=== PATIENT | female | born 1990 | race American Indian/Alaskan Native ===

== ENCOUNTER 2017-03-05 12:03 | Outpatient (CLI) | payer MEDICAID ==
[2017-03-05] MEDS ORDERED: LACTATED RINGERS 500 ML IV ONE (12:28)
[2017-03-05 12:51] VITALS: BP 104/55
[2017-03-05 13:59] LABS: Bacteria,Urine 4+ /HPF (Negative); Bilirubin,Urine NEG (Negative); Blood,Urine NEG (Negative); Ketones,Urine NEG (Negative); Leukocyte Esterase,Urine NEG (Negative); Mucus,Urine FEW /HPF; Nitrite,Urine NEG (Negative); Protein,Urine <15 mg/dL mg/dL (Negative); Urobilinogen,Urine < 2.0 mg/dL (<2.0)
[2017-03-05] MEDS ORDERED: XYLOCAINE 1% MPF 5 mL INFILTRATI ONE (14:36)
[2017-03-05] MEDS ORDERED: ROCEPHIN/NS 1 GM/50 ML 1 GM/50 ML BAG IV ONE (15:00)
[2017-03-06] MEDS ORDERED: ROCEPHIN IM SCH (10:00)
== END 2017-03-05 15:15 | disposition home or self-care (01) ==
LOC: TRG 12:03
PROVIDERS: ATTEND Obstetrics & Gynecology
DX: O47.03 False labor before 37 completed weeks of gestation, third trimester (principal)
CPT/HCPCS: 59025; 81001; 96360; J0696; J7120

== ENCOUNTER 2017-05-11 20:18 | Inpatient (IN) | payer MEDICAID ==
[2017-05-12] MEDS ORDERED: MINERAL OIL PO PRN (01:41)
[2017-05-12] MEDS ORDERED: XYLOCAINE 2% INFILTRATI ONE (01:41)
[2017-05-12] MEDS ORDERED: BRETHINE IVP PRN (01:41)
[2017-05-12] MEDS ORDERED: NARCAN 0.4 MG/1 ML IV PRN (01:41)
[2017-05-12] MEDS ORDERED: SUBLIMAZE IV PRN (01:41)
[2017-05-12] MEDS ORDERED: ePHEDrine SULFATE IV PRN (01:41)
[2017-05-12] MEDS ORDERED: STADOL IV PRN (01:41)
[2017-05-12] MEDS ORDERED: ZOFRAN IV PRN ×2 (01:41→14:20)
[2017-05-12] MEDS ORDERED: BRETHINE SUB-Q PRN (01:41)
[2017-05-12] MEDS ORDERED: PITOCin/NS 30 UNIT/500ML 30,000 MILLIUNITS/500 ML BAG IV ONE (01:42)
[2017-05-12] MEDS ORDERED: LACTATED RINGERS 1,000 ML ONE (01:42)
[2017-05-12] MEDS ORDERED: AMBIEN PO PRN (01:43)
[2017-05-12] MEDS ORDERED: PITOCin/NS 20 UNIT/1000ML DRIP 20 UNITS/1,000 ML BAG IV SCH (02:00)
[2017-05-12 02:42] LABS: Hematocrit 34.4 % (30.3-42.9); Mean Corpuscular HGB Conc 32 % (30-34); Platelet Count 185 K/mm3 (140-440); Red Blood Count 4.94 M/mm3 (3.65-5.03); White Blood Count 5.4 K/mm3 (4.5-11.0)
[2017-05-12 02:44] LABS: Mean Corpuscular Hemoglobin 22 pg (28-32); Mean Corpuscular Volume 70 fl (79-97); Red Cell Distribution Width 23.3 % (13.2-15.2)
[2017-05-12] MEDS: LACTATED RINGERS 1,000 ML IV SCH ×2 (05:45→10:44)
[2017-05-12] MEDS: PITOCin/NS 30 UNIT/500ML 30 UNITS/500 ML BAG IV SCH ×6 (05:46→11:22)
--- NOTE | 2017-05-12 08:12 | History and Physical Report ---
History of Present Illness Date of examination: 05/12/17 Date of admission: 05/11/17 20:18 History of present illness: 26 yo First trimester U/s EDC 05/02/17 @ 41.3 weeks gestation presented last night for postdates induction of labor. Started on low dose Pitocin. Cervix 3cm on admit, remains unchanged on evaluation this am. First trimester entry into care at 6 weeks gestation. course complicated by anemia with iron TID. She is GBS negative. 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 Family/Genetic History: none - Obstetrical History Expected Date of Delivery: 05/02/17 Actual Gestation: 41 Week(s) 3 Day(s) : 2 Para: 1 (6.7) Hx # Term Pregnancies: 1 Number of Living Children: 1 Medications and Allergies Allergies Allergy/AdvReac Type Severity Reaction Status Date / Time No Known Allergies Allergy Unverified 03/05/17 12:16 Home Medications Medication Instructions Recorded Confirmed Last Taken Type Ferrous Sulfate 325 mg PO TID 05/12/17 05/12/17 1 Week Ago History ~05/05/17 Active Meds: Active Medications Butorphanol Tartrate (Stadol) 2 mg IV Q2H PRN PRN Reason: Pain , Severe (7-10) Ephedrine Sulfate (Ephedrine Sulfate) 10 mg IV Q2M PRN PRN Reason: Hypotension Fentanyl (Sublimaze) 100 mcg IV Q2H PRN PRN Reason: Labor Pain Lactated Ringer's (Lactated Ringers) 1,000 mls @ 125 mls/hr IV DIRECT TAYLOR Last Admin: 05/12/17 05:45 Dose: 125 mls/hr Oxytocin/Sodium Chloride (Pitocin/Ns 20 Unit/1000ml Drip) 20 units in 1,000 mls @ 125 mls/hr IV DIRECT TAYLOR Oxytocin/Sodium Chloride (Pitocin/Ns 30 Unit/500ml) 30 units in 500 mls @ 2 mls /hr IV TITR TAYLOR PRN Reason: Protocol Last Admin: 05/12/17 08:05 Dose: 6 mls/hr, 6 mls/hr Mineral Oil (Mineral Oil) 30 ml PO QHS PRN PRN Reason: Constipation Naloxone HCl (Narcan 0.4 Mg/1 Ml) 0.1 mg IV Q2MIN PRN PRN Reason: Res Rate </= 8 or 02 SAT < 92% Ondansetron HCl (Zofran) 4 mg IV Q8H PRN PRN Reason: Nausea And Vomiting Terbutaline Sulfate (Brethine) 0.25 mg SUB-Q ONCE PRN PRN Reason: Hyperstimulation/Hypertonicity Terbutaline Sulfate (Brethine) 0.25 mg IVP ONCE PRN PRN Reason: Hyperstimulation/Hypertonicity Zolpidem Tartrate (Ambien) 10 mg PO QHS PRN PRN Reason: Insomnia Review of Systems All systems: negative - Vital Signs Vital signs: Vital Signs Pulse BP Pulse Ox 74 123/84 98 05/12/17 00:05 05/12/17 00:05 05/12/17 00:05 Temp Pulse Resp BP Pulse Ox 97.8 F 79 18 124/72 99 05/12/17 07:40 05/12/17 07:46 05/12/17 04:40 05/12/17 07:46 05/12/17 07:46 - Physical Exam Breasts: Positive: deferred Lungs: Positive: Normal air movement Abdomen: Positive: normal appearance Genitourinary (Female): Positive: other (abundant yeast) Vagina: Positive: normal moisture - Obstetrical FHR: category 1 Uterine Contraction Monitor Mode: External Cervical Dilatation: 3 Cervical Effacement Percentage: 70 station: -1 Uterine Contraction Frequency (min): 1-3 Uterine Contraction Duration: 60-70 Uterine Contraction Pattern: Regular Uterine Tone Measurement Phase: Resting Uterine Contraction Intensity: Mild Results Result Diagrams: 05/12/17 02:28 Abnormal lab results 05/12/17 Range/Units 02:28 MCV 70 L (79-97) fl MCH 22 L (28-32) pg RDW 23.3 H (13.2-15.2) % All other labs normal. Assessment and Plan A: IUP at 41.3 weeks gestation Postdates Induction of Labor Candidasis Infection P: Active Mangt Pitocin Diflucan 150mg po single dose
[2017-05-12] MEDS ORDERED: DIFLUCAN PO ONE (10:00)
[2017-05-12] MEDS ORDERED: BENADRYL PO PRN (11:30)
[2017-05-12] MEDS ORDERED: NARCAN 2 MG/2 ML ONE (13:11)
--- NOTE | 2017-05-12 14:17 | Procedure Note ---
OB Delivery Note - Delivery Date of Delivery: 05/12/17 (7-14oz female @ 1332) Surgeon: GRACE VILLALOBOS Estimated blood loss: 100cc - Vaginal Delivery presentation: vertex Delivery position: OA Intrapartum events: none Delivery induction: oxytocin Delivery augmentation: rupture of membranes Delivery monitor: none Route of delivery: Delivery cord: 3 umbilical vessels Episiotomy: none Delivery laceration: other (perineal abrasion, not bleeding, not repaired) Anesthesia: none - Infant A at 1 minute: 8 at 5 minutes: 9 Gender: Male (Progressed rapidly to C/C/+1. Pushed to viable female over intact perineum. Placed skin to skin. Spont. placenta, bleeding scant. Pitocin infusing. Laceration as noted)
[2017-05-12] MEDS ORDERED: PHENERGAN PO PRN (14:20)
[2017-05-12] MEDS ORDERED: DULCOLAX PR PRN (14:20)
[2017-05-12] MEDS ORDERED: NORCO 5/325 PO PRN (14:20)
[2017-05-12] MEDS ORDERED: TUCKS PAD TP PRN (14:20)
[2017-05-12] MEDS ORDERED: MILK OF MAGNESIA PO PRN (14:20)
[2017-05-12] MEDS ORDERED: LANSINOH TP PRN (14:20)
[2017-05-12] MEDS ORDERED: TYLENOL PO PRN (14:20)
[2017-05-12] MEDS ORDERED: SODIUM CHLORIDE FLUSH SYRINGE 10 ML IV NR (15:00)
[2017-05-12] MEDS: MOTRIN PO SCH (17:11)
[2017-05-13 04:10] LABS: Hematocrit 29.7 % (30.3-42.9); Hemoglobin 9.4 gm/dl (10.1-14.3)
--- NOTE | 2017-05-13 09:09 | Progress Note ---
Assessment and Plan O; VSS AF PPH/H: 9.4/29.7 A: Stable PP Day 1 P: D/c based on peds recommendation Subjective - Subjective Date of service: 05/13/17 Interval history: 26 yo First trimester U/s EDC 05/02/17 @ 41.3 weeks gestation presented last night for postdates induction of labor. Started on low dose Pitocin. Cervix 3cm on admit, remains unchanged on evaluation this am. First trimester entry into care at 6 weeks gestation. course complicated by anemia with iron TID. She is GBS negative. Patient reports: appetite normal, voiding normally, pain well controlled, ambulating normally : doing well, other (irregular heart beat, EKG done, awaiting peds to evaluate), bottle feeding Objective - Vital Signs Latest vital signs: Vital Signs Temp Pulse Resp BP BP Pulse Ox 05/13/17 00:00 98.9 F 88 18 126/63 05/12/17 20:00 98.2 F 91 H 18 121/66 05/12/17 17:10 98.5 F 65 15 109/70 98 05/12/17 15:06 96 H 119/73 05/12/17 14:53 91 H 97 05/12/17 14:51 94 H 117/79 05/12/17 14:48 93 H 97 05/12/17 14:43 89 96 05/12/17 14:38 94 H 96 05/12/17 14:36 88 113/56 05/12/17 14:33 93 H 97 05/12/17 14:28 89 96 05/12/17 14:23 89 97 05/12/17 14:21 92 H 123/60 05/12/17 14:18 95 H 97 05/12/17 14:13 97 H 97 05/12/17 14:08 94 H 97 05/12/17 14:06 97 H 124/63 05/12/17 14:03 102 H 98 05/12/17 13:58 108 H 99 05/12/17 13:53 110 H 98 05/12/17 13:51 110 H 128/67 05/12/17 13:34 144 H 98 05/12/17 13:28 112 H 91 05/12/17 13:23 111 H 99 05/12/17 13:18 122 H 99 05/12/17 13:13 110 H 100 05/12/17 13:08 122 H 100 05/12/17 13:03 104 H 100 05/12/17 12:58 105 H 100 05/12/17 12:53 105 H 100 05/12/17 12:48 103 H 100 05/12/17 12:43 103 H 100 05/12/17 12:38 103 H 99 05/12/17 12:33 99 H 100 05/12/17 12:28 104 H 100 05/12/17 12:23 110 H 100 05/12/17 12:18 88 100 05/12/17 12:13 84 100 05/12/17 12:08 81 100 05/12/17 12:03 87 100 05/12/17 11:58 97 H 100 05/12/17 11:53 87 100 05/12/17 11:48 91 H 100 05/12/17 11:36 71 100 05/12/17 11:34 89 83 L 05/12/17 11:31 80 100 05/12/17 11:26 68 100 05/12/17 11:21 72 100 05/12/17 11:16 81 100 05/12/17 11:11 69 100 05/12/17 11:06 77 100 05/12/17 11:01 75 100 05/12/17 10:58 81 90 05/12/17 10:56 84 100 05/12/17 10:51 76 98 05/12/17 10:46 99 H 91 05/12/17 10:41 73 99 05/12/17 10:36 81 99 05/12/17 10:31 87 98 05/12/17 10:26 88 97 Intake and Output 05/12/17 05/13/17 05/13/17 22:59 06:59 14:59 Intake Total 240 Output Total 800 Balance -800 240 Intake: Oral 240 Output: Urine 800 Void 800 Other: Total, Intake Amount 240 Total, Output Amount 800 # Voids Void 1 1 - Exam Breasts: Present: deferred Lungs: Present: Normal air movement Abdomen: Present: normal appearance, soft. Absent: distention, tenderness Vulva: both: normal Uterus: Present: normal, firm, fundal height below umbilicus. Absent: bogginess , tenderness Extremities: Present: normal - Labs Labs: Abnormal lab results 05/13/17 Range/Units 03:30 Hgb 9.4 L (10.1-14.3) gm/dl Hct 29.7 L (30.3-42.9) %
[2017-05-13] MEDS: MOTRIN PO SCH ×3 (10:02→22:33)
[2017-05-13] MEDS: FEOSOL PO SCH ×2 (10:02→22:33)
[2017-05-13] MEDS ORDERED: M-M-R II VACCINE SUB-Q ONE (14:20)
[2017-05-13] MEDS ORDERED: BOOSTRIX IM ONE (14:20)
[2017-05-14] MEDS: MOTRIN PO SCH (08:15)
--- NOTE | 2017-05-14 08:51 | Progress Note ---
Assessment and Plan A: PPD#2 s/p at term, Asymptomatic anemia P: Routine care. Discharge today with follow up in 4 wks with Naomi Bowles Subjective - Subjective Date of service: 05/14/17 Principal diagnosis: S/P at term, Asymptomatic anemia Interval history: Pt without complaints. Patient reports: appetite normal, voiding normally, pain well controlled, ambulating normally Normal: doing well Objective - Vital Signs Latest vital signs: Vital Signs Temp Pulse Resp BP 05/14/17 00:00 98.0 F 76 18 128/73 05/13/17 22:33 18 05/13/17 16:20 98.5 F 85 18 123/87 05/13/17 12:30 98.4 F 84 18 116/94 Intake and Output 05/13/17 05/14/17 05/14/17 22:59 06:59 14:59 Intake Total 240 Balance 240 Intake: Oral 240 Other: Total, Intake Amount 120 # Voids Void 1 - Exam Breasts: Present: deferred Cardiovascular: Present: Regular rate Lungs: Present: Clear to auscultation Abdomen: Present: soft Uterus: Present: fundal height below umbilicus Extremities: Present: normal
--- NOTE | 2017-05-14 09:41 | Discharge Summary ---
Providers - Providers Date of Admission: 05/11/17 20:18 Date of discharge: 05/14/17 Attending physician: RAHEEM FOUNTAIN Primary care physician: RAHEEM FOUNTAIN Hospitalization Reason for admission: induction of labor Delivery: Procedure details: Please see delivery note. Episiotomy: none Laceration: other (perineal abrasion, hemostatic without repair ) Other procedures: none complications: none Discharge diagnosis: IUP at term delivered baby: male Hospital course: Pt was admitted for induction of labor and went on to have a spontaneous vaginal deliver which she tolerated well. Her postoperative course was uncomplicated and she met discharge criteria on PPD#2. Condition at discharge: Stable Disposition: DC- TO HOME OR SELFCARE - Discharge Diagnoses (1) Term of male Status: Acute (2) Anemia Status: Acute Qualifiers: Anemia type: iron deficiency Plan - Discharge Medications Prescriptions: Ferrous Sulfate 325 mg PO BID #60 tablet. HYDROcodone/ACETAMINOPHEN [[place] 5-325 Tablet] 1 each PO Q6H PRN #20 tablet PRN Reason: Pain Ibuprofen [Motrin] 600 mg PO Q6H PRN #30 tablet PRN Reason: Pain - Provider Discharge Summary Activity: routine, no sex for 6 weeks, no heavy lifting 4 weeks, no strenuous exercise Diet: routine Instructions: routine Additional instructions: [] Smoking cessation referral if applicable(refer to patient education folder for contact #) [] Refer to [facility] Booklet Call your doctor immediately for: * Fever > 100.5 * Heavy vaginal bleeding ( >1 pad per hour) * Severe persistent headache * Shortness of breath * Reddened, hot, painful area to leg or breast * Drainage or odor from incision. * Keep incision clean and dry at all times and follow doctor's instructions regarding bathing/showering Please schedule your son's circumcision before he is one month old. - Follow up plan Follow up: GRACE VILLALOBOS CNM [Advanced Practice Nurse] - 06/09/17 (postspartum exam. - please call office. )
[2017-05-14 16:27] VITALS: BP 124/81
== END 2017-05-14 16:20 | disposition home or self-care (01) | DRG 774 ==
LOC: APU 20:18 → LD 20:40 → OB 05-12 16:25
PROVIDERS: ADMIT Obstetrics & Gynecology; ATTEND Obstetrics & Gynecology
PROC: 10E0XZZ Delivery of Products of Conception, External Approach (ICD-10-PCS; principal; 2017-05-12)
PROC: 3E0234Z Introduction of Serum, Toxoid and Vaccine into Muscle, Percutaneous Approach (ICD-10-PCS; 2017-05-12)
PROC: 3E033VJ Introduction of Other Hormone into Peripheral Vein, Percutaneous Approach (ICD-10-PCS; 2017-05-12)
DX: O48.0 Post-term pregnancy (principal); O98.82 Other maternal infectious and parasitic diseases complicating childbirth; Z3A.41 41 weeks gestation of pregnancy; Z37.0 Single live birth; B37.9 Candidiasis, unspecified; O71.82 Other specified trauma to perineum and vulva; O90.81 Anemia of the puerperium; D64.9 Anemia, unspecified
CPT/HCPCS: 36415; 85014; 85018; 85027; 86592; 86850; 86900; 86901; 99211; G0463; J0595; J2310; J2590; J3010; J7120

== ENCOUNTER 2020-07-01 13:04 | Emergency (ER) | payer MEDICAID ==
[2020-07-01] MEDS ORDERED: ACETAMINOPHEN 325 MG TAB PO ONE (14:34)
[2020-07-01 15:12] LABS: Bacteria,Urine 1+ /HPF (Negative); Bilirubin,Urine NEG (Negative); Blood,Urine NEG (Negative); Color,Urine Yellow (Yellow); Mucus,Urine 3+ /HPF; Protein,Urine <15 mg/dL mg/dL (Negative); Urobilinogen,Urine < 2.0 mg/dL (<2.0)
--- NOTE | 2020-07-01 15:15 | Emergency Department Report ---
ED HPI - General Chief complaint: Abdominal Pain Stated complaint: STOMACH PAIN Time Seen by Provider: 07/01/20 14:26 Source: patient Mode of arrival: Ambulatory Limitations: No Limitations - History of Present Illness Initial comments: Patient is a 29-year-old female presents emergency room complaints of pelvic pain that began today. She states that she is approximately 16 weeks . She states that her ANIMAL ASSISTED THERAPIST is at [facility]. She states that she tried to call today with but was unable to get in touch with anyone. She denies any vaginal bleeding, dysuria, abnormal vaginal discharge, leakage of fluids, nausea, vomiting, diarrhea, fever, back pain. She states her last menstrual cycle was March 09. No past medical history. No allergies medications. She states that she is currently with twins. /P: 2/A: 0 - Related Data Home Medications Medication Instructions Recorded Confirmed Last Taken Ferrous Sulfate 325 mg PO TID 05/12/17 05/12/17 1 Week Ago ~05/05/17 Previous Rx's Medication Instructions Recorded Last Taken Type Ferrous Sulfate 325 mg PO BID #60 tablet. 05/14/17 Unknown Rx HYDROcodone/ACETAMINOPHEN [[place] 1 each PO Q6H PRN #20 tablet 05/14/17 Unknown Rx 5-325 Tablet] Ibuprofen [Motrin] 600 mg PO Q6H PRN #30 tablet 05/14/17 Unknown Rx Acetaminophen [Tylenol] 650 mg PO Q8HR PRN #20 capsule 07/01/20 Unknown Rx Allergies Allergy/AdvReac Type Severity Reaction Status Date / Time No Known Allergies Allergy Unverified 03/05/17 12:16 ED Review of Systems ROS: Stated complaint: STOMACH PAIN Other details as noted in HPI Comment: All other systems reviewed and negative ED Past Medical Hx - Past Medical History Previous Medical History?: No Hx Diabetes: No Hx Deep Vein Thrombosis: No Hx Renal Disease: No Hx Sickle Cell Disease: No Hx Seizures: No Hx Asthma: No Hx HIV: No - Surgical History Past Surgical History?: No - Social History Smoking Status: Never Smoker - Medications Home Medications: Home Medications Medication Instructions Recorded Confirmed Last Taken Type Ferrous Sulfate 325 mg PO TID 05/12/17 05/12/17 1 Week Ago History ~05/05/17 Ferrous Sulfate 325 mg PO BID #60 tablet. 05/14/17 Unknown Rx HYDROcodone/ACETAMINOPHEN [[place] 1 each PO Q6H PRN #20 tablet 05/14/17 Unknown Rx 5-325 Tablet] Ibuprofen [Motrin] 600 mg PO Q6H PRN #30 tablet 05/14/17 Unknown Rx Acetaminophen [Tylenol] 650 mg PO Q8HR PRN #20 capsule 07/01/20 Unknown Rx ED Physical Exam - General Limitations: No Limitations General appearance: alert, in no apparent distress - Head Head exam: Present: atraumatic, normocephalic - Eye Eye exam: Present: normal appearance - ENT ENT exam: Present: mucous membranes moist - Respiratory Respiratory exam: Present: normal lung sounds bilaterally. Absent: respiratory distress, wheezes, rales, rhonchi, stridor, chest wall tenderness, accessory muscle use, decreased breath sounds, prolonged expiratory - Cardiovascular Cardiovascular Exam: Present: regular rate, normal rhythm, normal heart sounds. Absent: systolic murmur, diastolic murmur, rubs, gallop - GI/Abdominal GI/Abdominal exam: Present: soft, normal bowel sounds. Absent: distended, tenderness, guarding, rebound, rigid - Neurological Exam Neurological exam: Present: alert, oriented X3 - Psychiatric Psychiatric exam: Present: normal affect, normal mood - Skin Skin exam: Present: warm, dry, intact ED Course Vital Signs 07/01/20 07/01/20 14:04 18:36 Temperature 98.9 F Pulse Rate 92 H 88 Respiratory 16 16 Rate Blood Pressure 120/69 113/56 [Right] O2 Sat by Pulse 98 100 Oximetry ED Medical Decision Making - Lab Data Result diagrams: 07/01/20 18:19 07/01/20 18:19 Lab Results 07/01/20 07/01/20 07/01/20 Range/Units 15:02 18:19 18:19 WBC 6.1 (4.5-11.0) K/mm3 RBC 4.50 (3.65-5.03) M/mm3 Hgb 10.5 (10.1-14.3) gm/dl Hct 32.3 (30.3-42.9) % MCV 72 L (79-97) fl MCH 23 L (28-32) pg MCHC 32 (30-34) % RDW 14.4 (13.2-15.2) % Plt Count 253 (140-440) K/mm3 Lymph % (Auto) 16.6 (13.4-35.0) % [place] % (Auto) 5.8 (0.0-7.3) % Eos % (Auto) 0.8 (0.0-4.3) % Baso % (Auto) 0.4 (0.0-1.8) % Lymph # (Auto) 1.0 L (1.2-5.4) K/mm3 [place] # (Auto) 0.4 (0.0-0.8) K/mm3 Eos # (Auto) 0.0 (0.0-0.4) K/mm3 Baso # (Auto) 0.0 (0.0-0.1) K/mm3 Seg Neutrophils % 76.4 H (40.0-70.0) % Seg Neutrophils # 4.6 (1.8-7.7) K/mm3 Sodium 136 L (137-145) mmol/L Potassium 3.7 (3.6-5.0) mmol/L Chloride 104.0 (98-107) mmol/L Carbon Dioxide 26 (22-30) mmol/L Anion Gap 10 mmol/L BUN 7 (7-17) mg/dL Creatinine 0.4 L (0.6-1.2) mg/dL Estimated GFR > 60 ml/min BUN/Creatinine Ratio 18 % Glucose 102 H (65-100) mg/dL Calcium 8.8 (8.4-10.2) mg/dL Total Bilirubin < 0.20 (0.1-1.2) mg/dL AST 15 (5-40) units/L ALT 13 (7-56) units/L Alkaline Phosphatase 68 (35-129) units/L Total Protein 6.3 (6.3-8.2) g/dL Albumin 3.4 L (3.9-5) g/dL Albumin/Globulin Ratio 1.2 % HCG, Quant (0-4) mIU/mL Urine Color Yellow (Yellow) Urine Turbidity Slightly-cloudy (Clear) Urine pH 6.0 (5.0-7.0) Ur Specific [place] 1.023 (1.003-1.030) Urine Protein <15 mg/dl (Negative) mg/dL Urine Glucose (UA) Neg (Negative) mg/dL Urine Ketones Neg (Negative) mg/dL Urine Blood Neg (Negative) Urine Nitrite Neg (Negative) Urine Bilirubin Neg (Negative) Urine Urobilinogen < 2.0 (<2.0) mg/dL Ur Leukocyte Esterase Tr (Negative) Urine WBC (Auto) 3.0 (0.0-6.0) /HPF Urine RBC (Auto) 2.0 (0.0-6.0) /HPF U Epithel Cells (Auto) 1.0 (0-13.0) /HPF Urine Bacteria (Auto) 1+ (Negative) /HPF Urine Mucus 3+ /HPF 07/01/20 Range/Units 18:19 WBC (4.5-11.0) K/mm3 RBC (3.65-5.03) M/mm3 Hgb (10.1-14.3) gm/dl Hct (30.3-42.9) % MCV (79-97) fl MCH (28-32) pg MCHC (30-34) % RDW (13.2-15.2) % Plt Count (140-440) K/mm3 Lymph % (Auto) (13.4-35.0) % [place] % (Auto) (0.0-7.3) % Eos % (Auto) (0.0-4.3) % Baso % (Auto) (0.0-1.8) % Lymph # (Auto) (1.2-5.4) K/mm3 [place] # (Auto) (0.0-0.8) K/mm3 Eos # (Auto) (0.0-0.4) K/mm3 Baso # (Auto) (0.0-0.1) K/mm3 Seg Neutrophils % (40.0-70.0) % Seg Neutrophils # (1.8-7.7) K/mm3 Sodium (137-145) mmol/L Potassium (3.6-5.0) mmol/L Chloride (98-107) mmol/L Carbon Dioxide (22-30) mmol/L Anion Gap mmol/L BUN (7-17) mg/dL Creatinine (0.6-1.2) mg/dL Estimated GFR ml/min BUN/Creatinine Ratio % Glucose (65-100) mg/dL Calcium (8.4-10.2) mg/dL Total Bilirubin (0.1-1.2) mg/dL AST (5-40) units/L ALT (7-56) units/L Alkaline Phosphatase (35-129) units/L Total Protein (6.3-8.2) g/dL Albumin (3.9-5) g/dL Albumin/Globulin Ratio % HCG, Quant 99956 H (0-4) mIU/mL Urine Color (Yellow) Urine Turbidity (Clear) Urine pH (5.0-7.0) Ur Specific [place] (1.003-1.030) Urine Protein (Negative) mg/dL Urine Glucose (UA) (Negative) mg/dL Urine Ketones (Negative) mg/dL Urine Blood (Negative) Urine Nitrite (Negative) Urine Bilirubin (Negative) Urine Urobilinogen (<2.0) mg/dL Ur Leukocyte Esterase (Negative) Urine WBC (Auto) (0.0-6.0) /HPF Urine RBC (Auto) (0.0-6.0) /HPF U Epithel Cells (Auto) (0-13.0) /HPF Urine Bacteria (Auto) (Negative) /HPF Urine Mucus /HPF - Radiology Data Radiology results: report reviewed Ordering Physician: SAHRA PORRAS Date of Service: 07/01/20 Procedure(s): US OB >= 14 wk fetus add gest Accession Number(s): [id number] cc: SAHRA PORRAS US OB >= 14 weeks Fetus, US OB >= 14 wk fetus add gest INDICATION: PELVIC PAIN. TECHNIQUE: Transabdominal. COMPARISON: None available. FINDINGS: There is a twin : Twin A: Biparietal Diameter = 3.7 cm Head Circumference = 13.3 cm Abdominal Circumference = 10.6 cm Femur Length = 2.1 cm Average Ultrasound Age (AUA) = 16 weeks, 5 day(s). Heart Rate: 147 beats per minute. Estimated Weight in grams (if calculated): 159 Placenta: Anterior Visualized anatomy: Normal. Average Ultrasound Age (AUA) = 16 weeks, 5 day(s). Twin B: Biparietal Diameter = 3.5 cm Head Circumference = 12.7 cm Abdominal Circumference = 11.1 cm Femur Length = 2.3 cm Heart Rate: 141 beats per minute. Estimated Weight in grams (if calculated): 171 Placenta: posterior Visualized anatomy: Normal. Average Ultrasound Age (AUA) = 16 weeks, 5 day(s). Position: Breech Cervical length: 3.1 IMPRESSION: 1. Twin as above. Estimated gestational age of the twins is 16 weeks, 5 day(s). Signer Name: Stephan Sofia MD Signed: 07/01/2020 6:03 PM Workstation Name: [email or web address] Transcribed By: HORACIO Dictated By: Stephan Sofia MD Electronically Authenticated By: Stephan Sofia MD Signed Date/Time: 07/01/201802 DD/ 54 TD/TT: - Medical Decision Making Patient is a 29-year-old female presents emergency room complaints of pelvic pain that began today. She states that she is approximately 16 weeks . She states that her ANIMAL ASSISTED THERAPIST is at [facility]. She states that she tried to call today with but was unable to get in touch with anyone. She denies any vaginal bleeding, dysuria, abnormal vaginal discharge, leakage of fluids, nausea, vomiting, diarrhea, fever, back pain. She states her last menstrual cycle was March 09. No past medical history. No allergies medications. She states that she is currently with twins. /P: 2/A: 0. vitals are normal. no abd ttp on exam, no guarding, no rebound, no rigidity, normal bowel sounds, no peritoneal signs[place] [address]. UA is WNL. OB US: 1. Twin as above. Estimated gestational age of the twins is 16 weeks, 5 day(s). discussed all results with pt and answered questions. discussed the importance of ANIMAL ASSISTED THERAPIST follow up with pt. pt given prescription for tylenol. advised pt Please take medication as prescribed as needed. Increase your water intake. Practice pelvic rest. Follow-up with ANIMAL ASSISTED THERAPIST. Return to emergency room for any new or worsening symptoms. Critical care attestation.: If time is entered above; I have spent that time in minutes in the direct care of this critically ill patient, excluding procedure time. ED Disposition Clinical Impression: Abdominal pain in Qualifiers: Trimester: second trimester Qualified Code(s): O26.892 - Other specified related conditions, second trimester Twin gestation in second trimester Qualifiers: Multiple gestation type: unspecified Qualified Code(s): O30.002 - Twin pregnan cy, unspecified number of placenta and unspecified number of amniotic sacs, second trimester Disposition: TO HOME OR SELFCARE Is pt being admited?: No Does the pt Need Aspirin: No Condition: Stable Instructions: Abdominal Pain During , [id number], Abdominal Pain (ED) Additional Instructions: Please take medication as prescribed as needed. Increase your water intake. Practice pelvic rest. Follow-up with ANIMAL ASSISTED THERAPIST. Return to emergency room for any new or worsening symptoms. Prescriptions: Acetaminophen [Tylenol] 650 mg PO Q8HR PRN #20 capsule PRN Reason: pain Referrals: PRIMARY CARE, [Primary Care Provider] - 2-3 Days [facility] [Provider Group] - 2-3 Days Time of Disposition: 19:17 Print Language: AZERI
--- NOTE | 2020-07-01 18:08 | Ultrasound Report ---
US OB >= 14 weeks Fetus, US OB >= 14 wk fetus add gest INDICATION: PELVIC PAIN. TECHNIQUE: Transabdominal. COMPARISON: None available. FINDINGS: There is a twin : Twin A: Biparietal Diameter = 3.7 cm Head Circumference = 13.3 cm Abdominal Circumference = 10.6 cm Femur Length = 2.1 cm Average Ultrasound Age (AUA) = 16 weeks, 5 day(s). Heart Rate: 147 beats per minute. Estimated Weight in grams (if calculated): 159 Placenta: Anterior Visualized anatomy: Normal. Average Ultrasound Age (AUA) = 16 weeks, 5 day(s). Twin B: Biparietal Diameter = 3.5 cm Head Circumference = 12.7 cm Abdominal Circumference = 11.1 cm Femur Length = 2.3 cm Heart Rate: 141 beats per minute. Estimated Weight in grams (if calculated): 171 Placenta: posterior Visualized anatomy: Normal. Average Ultrasound Age (AUA) = 16 weeks, 5 day(s). Position: Breech Cervical length: 3.1 IMPRESSION: 1. Twin as above. Estimated gestational age of the twins is 16 weeks, 5 day(s). Signer Name: Stephan Sofia MD Signed: 07/01/2020 6:03 PM Workstation Name: [id number]
[2020-07-01 18:38] VITALS: BP 113/56
[2020-07-01 18:45] LABS: Basophils % (Auto) 0.4 % (0.0-1.8); Eosinophils % (Auto) 0.8 % (0.0-4.3); Hematocrit 32.3 % (30.3-42.9); Hemoglobin 10.5 gm/dl (10.1-14.3); Lymphocytes % (Auto) 16.6 % (13.4-35.0); Mean Corpuscular HGB Conc 32 % (30-34); Mean Corpuscular Volume 72 fl (79-97); Monocytes # (Auto) 0.4 K/mm3 (0.0-0.8); Monocytes % (Auto) 5.8 % (0.0-7.3); Platelet Count 253 K/mm3 (140-440); Red Cell Distribution Width 14.4 % (13.2-15.2)
[2020-07-01 18:56] LABS: Alanine Aminotransferase 13 units/L (7-56); Albumin 3.4 g/dL (3.9-5); Blood Urea Nitrogen 7 mg/dL (7-17); Calcium 8.8 mg/dL (8.4-10.2); Hemolysis Index 3
[2020-07-01 19:00] LABS: BUN/Creatinine Ratio 18
== END 2020-07-01 19:32 | disposition home or self-care (01) ==
LOC: ED 13:04
DX: O30.002 Twin pregnancy, unspecified number of placenta and unspecified number of amniotic sacs, second trimester (principal); O26.892 Other specified pregnancy related conditions, second trimester; R10.9 Unspecified abdominal pain; Z79.899 Other long term (current) drug therapy
CPT/HCPCS: 36415; 76805; 76810; 80053; 81001; 84702; 85025

== ENCOUNTER 2020-10-27 00:47 | Outpatient (CLI) | payer MEDICAID ==
[2020-10-27 01:31] VITALS: BP 113/66
[2020-10-27] MEDS ORDERED: LACTATED RINGERS 500 ML IV ONE (01:41)
[2020-10-27 03:17] LABS: Bacteria,Urine 1+ /HPF (Negative); Bilirubin,Urine NEG (Negative); Blood,Urine NEG (Negative); Color,Urine Yellow (Yellow); Mucus,Urine FEW /HPF; Protein,Urine <15 mg/dL mg/dL (Negative); Urobilinogen,Urine < 2.0 mg/dL (<2.0)
[2020-10-27] MEDS ORDERED: LACTATED RINGERS 1,000 ML IV ONE (04:09)
[2020-10-27] MEDS: TERBUTALINE 1 MG/1 ML INJ SUB-Q PRN ×2 (04:21→05:14)
[2020-10-27] MEDS ORDERED: NIFEdipine*For Tocolysis only* 10 MG CAPSULE PO ONE (06:53)
[2020-10-27] MEDS ORDERED: LACTATED RINGERS 1,000 ML ONE (07:47)
== END 2020-10-27 08:55 | disposition home or self-care (01) ==
LOC: TRG 00:47 → APU 00:48 → TRG 08:55
PROVIDERS: ATTEND Obstetrics & Gynecology
DX: O62.9 Abnormality of forces of labor, unspecified (principal); Z3A.33 33 weeks gestation of pregnancy
CPT/HCPCS: 36415; 59025; 81001; 82731; 96360; 96372; J3105; J7120; 96361

== ENCOUNTER 2020-11-09 18:03 | Inpatient (IN) | payer MEDICAID ==
[2020-11-09] MEDS ORDERED: SIMETHICONE 80 MG CHEW TAB PO PRN (18:47)
[2020-11-09] MEDS ORDERED: SODIUM CHLORIDE NASAL SPRAY 44ML NS PRN (18:47)
[2020-11-09] MEDS ORDERED: WITCH HAZEL/ GLYCERIN PAD TP PRN (18:47)
[2020-11-09] MEDS ORDERED: DOCUSATE SODIUM 100 MG CAP PO PRN (18:47)
[2020-11-09] MEDS ORDERED: ONDANSETRON 4 MG/2 ML INJ IV PRN ×2 (18:47→19:58)
[2020-11-09] MEDS ORDERED: diphenhydrAMINE 25 MG CAP PO PRN (18:47)
[2020-11-09] MEDS ORDERED: guaiFENesin DM 200/20 MG ORAL LIQD 10 ML PO PRN (18:47)
[2020-11-09] MEDS ORDERED: MAGNESIUM HYDROXIDE (MOM) ORAL LIQD UDC PO PRN (18:47)
[2020-11-09] MEDS ORDERED: LACTATED RINGERS 1,000 ML IV SCH ×2 (19:00→20:00)
[2020-11-09] MEDS ORDERED: BETAMET ACET/BETAMET NA PH 6 MG/ML INJ 5 ML MDV IM SCH (19:00)
[2020-11-09] MEDS ORDERED: AMPICILLIN/NS 2 GM/100 ML 2 GM/100 ML BAG IV SCH (19:00)
[2020-11-09 19:07] LABS: Hematocrit 26.7 % (30.3-42.9); Hemoglobin 8.4 gm/dl (10.1-14.3); Mean Corpuscular HGB Conc 32 % (30-34); Red Blood Count 4.13 M/mm3 (3.65-5.03)
[2020-11-09 19:56] LABS: Mean Corpuscular Volume 65 fl (79-97); Platelet Count 184 K/mm3 (140-440); Red Cell Distribution Width 27.8 % (13.2-15.2)
[2020-11-09] MEDS ORDERED: METOCLOPRAMIDE 10 MG/2 ML INJ IV ONE (19:56)
[2020-11-09] MEDS ORDERED: BICITRA ORAL LIQD 30ML PO ONE (19:56)
[2020-11-09] MEDS ORDERED: FAMOTIDINE 20 MG/2 ML INJ IV ONE (19:56)
[2020-11-09] MEDS ORDERED: PROMETHAZINE 25 MG RECT SUPP PR PRN (19:58)
[2020-11-09] MEDS ORDERED: PROMETHAZINE 25 MG TAB PO PRN (19:58)
[2020-11-09] MEDS ORDERED: HYDROmorphone 1 MG/1 ML INJ IV PRN (19:58)
[2020-11-09] MEDS ORDERED: NalbUPHINE 10 MG/1 ML INJ IV PRN (19:58)
[2020-11-09] MEDS ORDERED: NALOXONE 0.4 MG/1 ML INJ IV PRN (19:58)
[2020-11-09] MEDS ORDERED: diphenhydrAMINE 50 MG/ML VIAL IV PRN (19:58)
[2020-11-09] MEDS ORDERED: ceFAZolin/Water 2 GM/20 ML 2 GM/20 ML SYRINGE IV NR (20:00)
[2020-11-09] MEDS ORDERED: OXYTOCIN DRIP 30 UNITS/500 ML BAG IV SCH (20:00)
[2020-11-09] MEDS ORDERED: ERYTHROMYCIN LACTOBIONATE 250 MG in SODIUM CHLORIDE 0.9% 100 ML IV SCH (20:00)
--- NOTE | 2020-11-09 20:04 | History and Physical Report ---
History of Present Illness Date of examination: 11/09/20 Date of admission: 11/09/20 18:47 Chief complaint: contractions, and my water broke History of present illness: Pt is a 29 year old -English female JIL 12/15/2020 at 34w6d with a di-di twin who presents with regular painful contraction since this afternoon and cervical change from 1cm to 5 cm while in triage, and rupture of membranes while in triage as well. She has had care at [facility] since 12 wks with comanagement by [facility] complicated by anemia on iron lux pplementation, left renal pyelectasis for Twin B, low TSH in first trimester with normal value at 20 wks. Her GBS status is unknown. Past History Past Medical History: hematologic disorders (anemia ) Past Surgical History: no surgical history Social history: no significant social history - Obstetrical History Expected Date of Delivery: 12/15/20 Actual Gestation: 34 Week(s) 6 Day(s) : 3 Para: 2 Hx # Term Pregnancies: 2 Number of Pregnancies: 0 Spontaneous Abortions: 0 Induced : 0 Number of Living Children: 2 Medications and Allergies Allergies Allergy/AdvReac Type Severity Reaction Status Date / Time No Known Allergies Allergy Verified 11/09/20 18:31 Home Medications Medication Instructions Recorded Confirmed Last Taken Type Ferrous Sulfate 325 mg PO TID 05/12/17 05/12/17 1 Week Ago History ~05/05/17 Ferrous Sulfate 325 mg PO BID #60 tablet. 05/14/17 Unknown Rx HYDROcodone/ACETAMINOPHEN [[place] 1 each PO Q6H PRN #20 tablet 05/14/17 Unknown Rx 5-325 Tablet] Ibuprofen [Motrin] 600 mg PO Q6H PRN #30 tablet 05/14/17 Unknown Rx Acetaminophen [Tylenol] 650 mg PO Q8HR PRN #20 capsule 07/01/20 Unknown Rx Active Meds: Active Medications Acetaminophen (Acetaminophen 325 Mg Tab) 650 mg PO Q4H PRN PRN Reason: Pain MILD(1-3)/Fever >100.5/KRUSE Amoxicillin (Amoxicillin 250 Mg Cap) 250 mg PO Q8HR TAYLOR; Protocol Stop: 11/16/20 21:59 Betamethasone Acet/Betameth SodPhos (Betamet Acet/Betamet Na Ph 6 Mg/Ml Inj 5 Ml Mdv) 12 mg IM Q24H TAYLOR Stop: 11/10/20 19:01 Last Admin: 11/09/20 19:07 Dose: 12 mg Documented by: Diphenhydramine HCl (Diphenhydramine 25 Mg Cap) 25 mg PO Q6H PRN PRN Reason: Itching Diphenhydramine HCl (Diphenhydramine 50 Mg/Ml Vial) 12.5 mg IV Q2H PRN PRN Reason: Itching Docusate Sodium (Docusate Sodium 100 Mg Cap) 100 mg PO Q12H PRN PRN Reason: Constipation Erythromycin (Erythromycin Base [address]) 250 mg PO Q8HR TAYLOR; Protocol Stop: 11/16/20 21:59 Guaifenesin (Guaifenesin Dm 200/20 Mg Oral Liqd 10 Ml) 10 ml PO Q6H PRN PRN Reason: Cough Hydromorphone HCl (Hydromorphone 1 Mg/1 Ml Inj) 0.5 mg IV Q4H PRN PRN Reason: breakthrough pain > 7/10 Lactated Ringer's (Lactated Ringers) 1,000 mls @ 125 mls/hr IV DIRECT TAYLOR Ampicillin Sodium (Ampicillin/Ns 2 Gm/100 Ml) 2 gm in 100 mls @ 100 mls/hr IV Q6H TAYLOR; Protocol Stop: 11/11/20 13:59 Last Admin: 11/09/20 19:20 Dose: 100 mls/hr Documented by: Erythromycin Lactobionate 250 (mg/ Sodium Chloride) 100 mls @ 100 mls/hr IV Q6H TAYLOR; Protocol Stop: 11/11/20 14:59 Lactated Ringer's (Lactated Ringers) 1,000 mls @ 2,250 mls/hr IV PREOP TAYLOR Stop: 11/10/20 20:27 Oxytocin/Sodium Chloride (Pitocin/Ns 30 Unit/500ml) 30 units in 500 mls @ 0 mls/hr IV TITR TAYLOR; Protocol Cefazolin Sodium (Ancef/Sterile Water 2 Gm/20 Ml) 2 gm in 20 mls @ 80 mls/hr IV PREOP NR; Protocol Stop: 11/09/20 23:59 Magnesium Hydroxide (Magnesium Hydroxide (Mom) Oral Liqd Udc) 30 ml PO QHS PRN PRN Reason: Laxative Effect Multivitamins/Iron/Calcium ( Awa46-Az Fumarate-Folic Acid Vit Tab) 1 each PO QDAY TAYLOR Nalbuphine HCl (Nalbuphine 10 Mg/1 Ml Inj) 2.5 mg IV Q2H PRN PRN Reason: Itching Naloxone HCl (Naloxone 0.4 Mg/1 Ml Inj) 0.2 mg IV Q2MIN PRN PRN Reason: Res Rate </= 8 or 02 SAT < 92% Ondansetron HCl (Ondansetron 4 Mg/2 Ml Inj) 4 mg IV Q6H PRN PRN Reason: Nausea And Vomiting Ondansetron HCl (Ondansetron 4 Mg/2 Ml Inj) 4 mg IV Q8H PRN PRN Reason: Nausea And Vomiting Promethazine HCl (Promethazine 25 Mg Tab) 25 mg PO Q6H PRN PRN Reason: Nausea And Vomiting Promethazine HCl (Promethazine 25 Mg Rect Supp) 25 mg AR Q6H PRN PRN Reason: Nausea And Vomiting Simethicone (Simethicone 80 Mg Chew Tab) 80 mg PO Q6H PRN PRN Reason: Gas pain Sodium Chloride (Sodium Chloride Nasal [place] 44ml) 2 spray NS Q4H PRN PRN Reason: Congestion [place]/Glycerin ([place]/ Glycerin Pad) 1 each TP PRN PRN PRN Reason: Hemorrhoids Review of Systems All systems: negative - Vital Signs Vital signs: Vital Signs Temp Pulse Resp BP Pulse Ox 98.4 F 98 H 16 130/65 100 11/09/20 19:09 11/09/20 19:09 11/09/20 19:09 11/09/20 19:09 11/09/20 19:09 Temp Pulse Resp BP Pulse Ox 99.3 F 99 H 16 130/65 0 L 11/09/20 19:18 11/09/20 19:58 11/09/20 19:09 11/09/20 19:09 11/09/20 19:58 - Physical Exam Breasts: Positive: deferred Abdomen: Positive: soft (gravid ) Uterus: Positive: enlarged (gravid ) Extremities: Positive: normal - Obstetrical FHR: auscultation normal Uterine Contraction Monitor Mode: External Cervical Dilatation: 5 Uterine Contraction Pattern: Regular Uterine Tone Measurement Phase: Resting Uterine Contraction Intensity: Strong/Firm Results Result Diagrams: 11/09/20 18:44 Abnormal lab results 11/09/20 Range/Units 18:44 Hgb 8.4 L (10.1-14.3) gm/dl Hct 26.7 L (30.3-42.9) % MCV 65 L (79-97) fl MCH 20 L (28-32) pg RDW 27.8 H (13.2-15.2) % All other labs normal. Assessment and Plan A: Di-Di twin IUP at 34w6d Labor PPROM Malpresentation on Twin B Anemia GBS unknown P: Type and cross 2 units of PRBCs Prepare for primary section and other indicated procedures NICU aware
[2020-11-09] MEDS ORDERED: CARBOPROST TROMETHAMINE 250 MCG/1 ML INJ IM PRN (20:06)
[2020-11-09] MEDS ORDERED: miSOPROStol 200 MCG TAB PR PRN (20:06)
[2020-11-09] MEDS ORDERED: METHYLERGONOVINE MALEATE 0.2 MG/ML VIAL IM PRN (20:06)
[2020-11-09] MEDS ORDERED: SODIUM CHLORIDE 0.9% 500 ML 500 ML IV ONE ×2 (20:07→21:18)
--- NOTE | 2020-11-09 20:19 | Ultrasound Report ---
US OB limited INDICATION / CLINICAL INFORMATION: PPROM, twin IUP. COMPARISON: None available. FINDINGS: Twin A: Position is cephalic. Heart rate is 169. Largest vertical amniotic fluid pocket is 2.1 cm. Twin B: lie is transverse with head maternal right. Heart rate is 151. Largest vertical amnioti c fluid pocket is 1.4 cm. No placental abnormalities are seen. IMPRESSION: 1. Viable twin pregnancies. Amniotic fluid index is at the lower limits of normal/slightly decreased. Signer Name: Dagoberto Mcdonald MD Signed: 11/09/2020 8:15 PM Workstation Name: [id number]
[2020-11-09] MEDS ORDERED: PHENYLEPHRINE/NS 1,000 MCG/10 ML SYRINGE (OR USE) IV ONE (20:57)
[2020-11-09] MEDS ORDERED: dexAMETHasone 20 MG/5 ML VIAL ONE (20:57)
[2020-11-09] MEDS ORDERED: ONDANSETRON 4 MG/2 ML INJ ONE (20:57)
[2020-11-09] MEDS ORDERED: KETOROLAC 30 MG/1 ML INJ ONE (20:57)
[2020-11-09] MEDS ORDERED: BUPIVACAINE/PF (0.5%) 5 MG/1 ML 30 ML VIAL INFILTRATI ONE (20:57)
[2020-11-09] MEDS ORDERED: ePHEDrine SULFATE 50 MG/1 ML INJ ONE (20:57)
[2020-11-09] MEDS ORDERED: ceFAZolin/STERILE WATER 2 GM/20 ML SYRINGE IV ONE (21:00)
[2020-11-09] MEDS ORDERED: WATER FOR IRRIG STERILE 1,500 ML BOTTLE IR ONE (21:02)
[2020-11-09] MEDS ORDERED: SODIUM CHLORIDE 0.9% IRR 1,500 ML BOTTLE IR ONE (21:02)
[2020-11-09] MEDS ORDERED: LACTATED RINGERS 1,000 ML ONE (21:25)
[2020-11-09] MEDS ORDERED: SODIUM CHLORIDE 0.9% 100 ML ONE (21:25)
--- NOTE | 2020-11-09 22:11 | Procedure Note ---
OB Delivery Note - Delivery Date of Delivery: 11/09/20 Surgeon: RAHEEM FOUNTAIN Estimated blood loss: 1000cc - Section Preop diagnosis: other malpresentation (transverse presentation) Postop diagnosis: same section procedure: section, primary low transverse Disposition: PACU Narrative: Please see operative report - Infant A at 1 minute: 8 at 5 minutes: 9 Gender: Female (2262g (5lb 0oz) @ 2117 pm) B at 1 minute: 7 at 5 minutes: 9 Infant Gender: Male (2165g (4lb 12oz) @ 2119pm)
--- NOTE | 2020-11-09 22:21 | Operative Report ---
Operative Report Operative Report: Date of procedure: November 09, 2020 Preoperative diagnosis: 1) Di-Di Twin IUP at 34w6d 2) Labor 3) Malpres entation of Twin B- transverse 4) PPROM Postoperative diagnosis: Same 5) Unstable lie of Twin B Procedure: Primary low transverse section Surgeon: Sejal Juárez M.D. Anesthesia: Regional Findings: 1) Viable female , Apgars 8 and 9, weight 2262 g, (5 lb 0 oz) in cephalic presentation 2) Viable male , Apgars 7 and 9, weight 2165g (4lb 12oz) in cephalic presentation 2) Normal-appearing uterus ovaries and tubes Estimated blood loss: 1000 mL Urine output: clear at the end of the procedure Drains: Wesley to gravity Specimens: Placenta to pathology Complications:None. Counts correct x 3 Disposition: Stable to PACU Indication for procedure: Pt is a 29 year old at 34w6d with di-di twin gestation presents in labor, with PPROM and malpresentation of twin B (transverse by ultrasound). The decision was made to proceed with delivery. Operation in detail: After the risks, benefits, alternatives and complications were explained to the patient she gave informed consent for the procedure. She was subsequently taken to the operating room where regional anesthesia was noted to be adequate. She was placed in the dorsal supine position with leftward tilt and prepped and draped in a normal sterile fashion. heart tones were noted prior to incision. A timeout was performed. A Pfannenstiel skin incision was made with the knife and carried down to the layer of the fascia with the Bovie. The fascia was incised in the midline and the fascial incision was extended bilaterally with the Bovie. The fascial incision was then stretched. The rectus muscles were then in the midline. The peritoneum was then entered bluntly. The peritoneal incision was extended with good visualization of the bladder. The peritoneal incision was then stretched. An Flaquito retractor was placed. The bladder blade was then placed. The vesicouterine peritoneum was grasped with smooth pick ups and incised with Metzenbaum scissors . A bladder flap was then created digitally and the bladder blade was replaced. A transverse incision was made in the lower uterine segment with a knife and extended bilaterally with the bandage scissors. Amniotomy was performed with egress of clear fluid. head of twin A was delivered with ease, followed by shoulders and body. bulb suctioned at delivery. Cord clamped and cut. handed to NICU staff in attendance. Amniotomy of second amniotic sac reveals clear fluid. Head of B delivered with ease, followed by shoulders and body. bulb suctioned at delivery. Cord clamped and cut. handed to NICU staff in attendance. The placenta was then delivered manually. The uterus was then exteriorized and cleared of all clots and debris. The hysterotomy was then reapproximated with 0 Monocryl in a running locked fashion. A second layer of the same suture was used in imbricating fashion. A figure of eight of 0 Monocryl was placed at the center of the hysterotomy for hemostasis. The hysterotomy was inspected and hemostasis was noted. The gutters were irrigated and cleared of all clots and debris. The hysterotomy was again inspected and noted to be hemostatic. Surgicel was placed over the hysterotomy. The Flaquito retractor was removed. The uterus was placed back into the peritoneal cavity. The peritoneum was reapproximated with 2-0 Vicryl in a running fashion incorporating the rectus muscles. Surgicel was placed over the rectus muscles. The fascia was reapproximated with 0 Vicryl in a running fashion. The skin was reapproximated with 4-0 Vicryl in a subcuticular fashion. The incision was then covered with steri strips and a pressure dressing. The procedure was then ended. The patient tolerated the procedure well and was taken to the PACU in stable condition. All instrument, lap, and needle counts were correct 3.
--- NOTE | 2020-11-09 22:37 | Anesthesia Consultation ---
Anesthesia Consult and Med Hx Date of service: 11/09/20 - Airway Anesthetic Teeth Evaluation: Good ROM Head & Neck: Adequate Mental/Hyoid Distance: Adequate Mallampati Class: Class II Intubation Access Assessment: Probably Good - Pulmonary Exam CTA: Yes - Cardiac Exam Cardiac Exam: RRR - Pre-Operative Health Status ASA Pre-Surgery Classification: ASA2, Emergency Proposed Anesthetic Plan: Spinal - Pulmonary Hx Smoking: No Hx Asthma: No Hx Sleep Apnea: No - Cardiovascular System Hx Hypertension: No Hx Heart Attack/AMI: No Hx Angina: No - Central Nervous System Hx Seizures: No Hx Psychiatric Problems: No - Gastrointestinal Hx Gastroesophageal Reflux Disease: No - Endocrine Hx Renal Disease: No Hx Liver Disease: No Hx Insulin Dependent Diabetes: No Hx Non-Insulin Dependent Diabetes: No Hx Hypothyroidism: No Hx Hyperthyroidism: No - Hematic Hx Anemia: Yes Hx Sickle Cell Disease: No - Other Systems Hx Alcohol Use: No
--- NOTE | 2020-11-09 22:37 | Anesthesia Day of Surgery ---
Anesthesia Day of Surgery - Day of Surgery Patient Examined: Yes Patient H&P Reviewed: Yes Patient is NPO: Yes Beta Blockers: No Cardiac Clearance: No Pulmonary Clearance: No Mike's Test: N/A
--- NOTE | 2020-11-09 22:39 | Progress Note ---
Regional Anesthesia Block - Regional Anesthesia Block Start Time: 22:20 Stop Time: 22:27 Performed By:: BRYANT AWAN Procedure: Patient consented for TAP block for post surgical pain management. Patient identified, monitors placed, and time out performed. Mid axillary TAP identified bilaterally via ultrasound. Skin prepped bilaterally with [chlorhexidine] and [20g stimuplex] needle advanced to the TAP. 30ml [Marcaine 0.25% with 25mcg Pre cedex and Decadron 5mg] injected under ultrasound guidance on the [left] side. 30ml [Marcaine 0.25% with 25mcg Precedex and Decadron 5mg] injected under ultrasound guidance on the [right] side. Negative aspiration every 5mL, Patient tolerated the procedure well. No apparent complications seen.
--- NOTE | 2020-11-09 22:39 | Progress Note ---
Spinal Anesthesia Block - Spinal Anesthesia Block Start Time: 20:32 Stop Time: 20:40 Performed by:: BRYANT AWAN Procedure: Spinal anesthesia block is being performed for . [c/s] H&P, labs have been reviewed. Patient's questions and concerns have been answered. Informed consent has been performed. Timeout has was performed. Patient in sitting position on side of bed. Sterile prep and drape was performed. 3 mL 1% lidocaine skin wheal at L [3]-L [4]. Needle introducer advanced. 25-gauge spinal needle advanced, [+] CSF [-] blood. [marcaine 10mg and precedex 5mcg] Spinal dose was given. All needles removed. Patient tolerated procedure well.
[2020-11-10 01:17] LABS: Anisocytosis 1+; Total Cells Counted 100
[2020-11-10 01:18] LABS: Platelet Estimate Consistent w Auto
[2020-11-10] MEDS: ACETAMINOPHEN 325 MG TAB PO PRN (05:12)
[2020-11-10] MEDS ORDERED: WITCH HAZEL/ GLYCERIN PAD TP PRN (09:12)
[2020-11-10] MEDS ORDERED: KETOROLAC 30 MG/1 ML INJ IV PRN (09:12)
[2020-11-10] MEDS ORDERED: NALOXONE 0.4 MG/1 ML INJ IV PRN (09:12)
[2020-11-10] MEDS ORDERED: IBUPROFEN 800 MG TAB PO PRN (09:12)
[2020-11-10] MEDS ORDERED: LANOLIN/ZINC/DIMETHICONE (LANSINOH) 7 GM TP PRN (09:12)
[2020-11-10 09:38] LABS: Hematocrit 28.5 % (30.3-42.9); Hemoglobin 8.7 gm/dl (10.1-14.3)
[2020-11-10] MEDS: ceFAZolin/NS 1 GM/50 ML 1 GM/50 ML BAG IV SCH ×2 (09:47→17:50)
--- NOTE | 2020-11-10 09:47 | Post Anesthesia Evaluation ---
- Post Anesthesia Evaluation Patient Participated: Yes Airway Patent: Yes Stable Respiratory Function: Yes Nausea/Vomiting: No Temp > 96.8F: Yes Pain Manageable: Yes Adequeate Hydration: Yes Anesthesia Complications: No Block Receding Appropriately: Yes Patient on Ventilator: No
[2020-11-10] MEDS: FERROUS SULFATE 325 MG TAB PO SCH (09:48)
[2020-11-10] MEDS: KETOROLAC 30 MG/1 ML INJ IV SCH ×2 (09:49→16:45)
[2020-11-10] MEDS ORDERED: D5W/LACTATED RINGERS 1,000 ML IV SCH (10:00)
[2020-11-10] MEDS ORDERED: PRENATAL VIT27-FE FUMARATE-FOLIC ACID VIT TAB PO SCH (10:00)
--- NOTE | 2020-11-10 11:54 | Progress Note ---
Assessment and Plan A: POD#1 s/p primary section at 34wks secondary to labor, PPROM, di-di twin IUP, malpresentation of twin B Acute on chronic anemia P: Routine postop care Optimize pain regimen Await postop H/H Continue to monitor clinical status Subjective - Subjective Date of service: 11/10/20 Principal diagnosis: s/p primary cesaren at 34 wks secondary to twin IUP, malpresentation Interval history: Pt is seen in NICU entryway as she goes visit her twins. She has no complaints. Patient reports: appetite normal, voiding normally, pain well controlled, flatus, ambulating normally, no bowel movement [place]: in NICU Objective - Vital Signs Latest vital signs: Vital Signs Temp Pulse Resp BP BP BP Pulse Ox 11/10/20 07:41 97.7 F 71 20 113/73 99 11/10/20 05:12 18 11/10/20 04:35 97.9 F 56 L 20 122/80 99 11/10/20 00:15 97.5 F L 52 L 18 138/79 100 11/09/20 23:15 97.7 F 60 18 120/68 98 11/09/20 23:04 66 18 126/83 96 11/09/20 23:00 60 126/76 98 11/09/20 22:30 95 H 16 123/81 98 11/09/20 22:15 97.9 F 64 16 120/75 98 11/09/20 20:12 104 H 86 11/09/20 20:11 96 H 82 L 11/09/20 20:07 84 100 11/09/20 20:02 98 H 99 11/09/20 19:58 99 H 0 L 11/09/20 19:57 83 0 L 11/09/20 19:52 97 H 72 L 11/09/20 19:48 100 H 79 L 11/09/20 19:46 106 H 96 11/09/20 19:41 103 H 100 11/09/20 19:36 94 H 100 11/09/20 19:31 103 H 96 11/09/20 19:30 96 H 0 L 11/09/20 19:21 110 H 27 L 11/09/20 19:20 97 H 100 11/09/20 19:18 99.3 F 11/09/20 19:15 88 100 11/09/20 19:10 86 87 11/09/20 19:09 98.4 F 88 16 130/65 130/65 100 Intake and Output 11/09/20 11/10/20 11/10/20 22:59 06:59 14:59 Intake Total 1200 120 Output Total 600 3900 Balance 600 -3780 Intake: IV 1200 Intake, Free Water 120 Output: Urine 600 3900 Indwelling Catheter 100 2900 Uretheral ([place]) 250 Other: Total, Output Amount 100 1000 Weight 73.028 kg - Exam Breasts: Present: deferred - Labs Labs: Abnormal lab results 11/09/20 11/10/20 Range/Units 18:44 09:26 Hgb 8.4 L 8.7 L (10.1-14.3) gm/dl Hct 26.7 L 28.5 L (30.3-42.9) % MCV 65 L (79-97) fl MCH 20 L (28-32) pg RDW 27.8 H (13.2-15.2) % Seg Neuts % (Manual) 77.0 H (40.0-70.0) % Lymphocytes # (Manual) 0.7 L (1.2-5.4) K/mm3
[2020-11-10] MEDS: oxyCODONE /ACETAMINOPHEN 5-325MG TAB PO PRN ×2 (13:22→21:16)
[2020-11-11] MEDS: oxyCODONE /ACETAMINOPHEN 5-325MG TAB PO PRN ×2 (05:28→15:41)
[2020-11-11] MEDS: ACETAMINOPHEN 325 MG TAB PO PRN (07:13)
--- NOTE | 2020-11-11 07:56 | Progress Note ---
Assessment and Plan - Patient Problems (1) Twin Current Visit: Yes Status: Acute Plan to address problem: patient doing well consider discharge home tomorrow (2) delivery delivered Current Visit: Yes Status: Acute Subjective - Subjective Date of service: 11/11/20 Principal diagnosis: s/p primary cesaren at 34 wks secondary to twin IUP, malpresentation Interval history: Patient reports ambulating in room. She is voiding and pain is better controlled Patient reports: appetite normal, voiding normally, pain well controlled [place]: in NICU Objective - Vital Signs Latest vital signs: Vital Signs Temp Pulse Resp BP BP Pulse Ox 11/11/20 00:00 98.0 F 55 L 18 126/72 100 11/10/20 16:36 98.0 F 69 18 112/72 98 Intake and Output 11/10/20 11/11/20 11/11/20 22:59 06:59 14:59 Intake Total 240 Output Total 500 Balance -260 Intake: Oral 240 Output: Urine 500 Void 500 Other: Total, Intake Amount 240 Total, Output Amount 300 # Voids Void 2 - Labs Labs: Abnormal lab results 11/10/20 Range/Units 09:26 Hgb 8.7 L (10.1-14.3) gm/dl Hct 28.5 L (30.3-42.9) %
[2020-11-11] MEDS: FERROUS SULFATE 325 MG TAB PO SCH (09:11)
[2020-11-11] MEDS ORDERED: MEASLES, MUMPS & RUBELLA 12,500 UNIT/0.5 ML VACCINE SUB-Q ONE (09:13)
[2020-11-11] MEDS ORDERED: TETANUS,DIPH,PERTUSS(ACELL) VACCINE 0.5 ML SYRINGE IM ONE (09:13)
[2020-11-11] MEDS: IBUPROFEN 800 MG TAB PO PRN (21:33)
[2020-11-11] MEDS ORDERED: AMOXICILLIN 250 MG CAP PO SCH (22:00)
[2020-11-11] MEDS ORDERED: ERYTHROMYCIN BASE 250 MG CAPSULE DR PO SCH (22:00)
[2020-11-12] MEDS: IBUPROFEN 800 MG TAB PO PRN ×2 (05:11→15:48)
--- NOTE | 2020-11-12 07:38 | Progress Note ---
Assessment and Plan A: POD# 3 s/p Primary C/S at 34wks, PPROM, TIUP and malpresentation Acute on chronic anemia Lower back pain Constipation P: Continue with routine care Lidocaine patch order for lower back pain Initiate stool-softener Anticipate discharge later this evening Subjective - Subjective Date of service: 11/12/20 Principal diagnosis: s/p primary cesaren at 34 wks secondary to twin IUP, malpresentation Interval history: POD #3 s/p primary C/S. Pt is feeling well however reporting some lower back discomfort. Lochia decreasing, no issues with ambulation or urination, +flatus. Patient has not had a bowel movement as of yet. Patient reports: appetite normal, voiding normally, pain well controlled, ambulating normally, no bowel movement [place]: in NICU Objective - Vital Signs Latest vital signs: Vital Signs Temp Pulse Resp BP BP Pulse Ox 11/12/20 00:05 98.3 F 76 103/63 11/11/20 16:05 98.4 F 76 18 112/71 100 11/11/20 15:41 16 11/11/20 07:46 97.6 F 62 18 116/77 99 Intake and Output 11/11/20 11/11/20 11/12/20 15:59 23:59 07:59 Other: # Voids Void 1 1 - Exam Uterus: Present: normal, firm, fundal height at umbilicus
--- NOTE | 2020-11-12 07:52 | Discharge Summary ---
Providers - Providers Date of Admission: 11/09/20 18:47 Date of discharge: 11/12/20 Attending physician: RAHEEM FOUNTAIN 11/10/20 09:12 Consult to Welfare Worker [CONS] Routine Reason For Exam: Primary care physician: RAHEEM FOUNTAIN Hospitalization Reason for admission: IUP - (Twins), labor, rupture of membranes Delivery: Procedure: section Other procedures: none complications: none Discharge diagnosis: delivery baby: twins Condition at discharge: Good Disposition: [id number] TO HOME OR SELFCARE Plan - Discharge Medications Prescriptions: Docusate Sodium [Colace] 100 mg PO BID PRN #60 capsule PRN Reason: Constipation Ferrous Sulfate [Feosol 325 MG tab] 325 mg PO BID #60 tablet Ibuprofen [Motrin] 800 mg PO Q8HR PRN #60 tablet PRN Reason: Pain , Severe (7-10) oxyCODONE /ACETAMINOPHEN [Percocet 5/325] 1 tab PO Q6HR PRN #30 tablet PRN Reason: Pain - Provider Discharge Summary Activity: other (No sex, heavy lifting and strenuous exercise for 8 weeks) Diet: routine Instructions: routine Additional instructions: [] Smoking cessation referral if applicable(refer to patient education folder for contact #) [] Refer to [facility]'s [facility] Booklet Call your doctor immediately for: * Fever > 100.5 * Heavy vaginal bleeding ( >1 pad per hour) * Severe persistent headache * Shortness of breath * Reddened, hot, painful area to leg or breast * Drainage or odor from incision. * Keep incision clean and dry at all times and follow doctor's instructions regarding bathing/showering Please call the office to schedule incision check at 2 weeks. - Follow up plan Follow up: JANNETTE ROCKWELL, DATE NIGHT CAREGIVER [Advanced Practice Nurse] - 14 Days
[2020-11-12] MEDS: oxyCODONE /ACETAMINOPHEN 5-325MG TAB PO PRN (09:33)
[2020-11-12] MEDS: FERROUS SULFATE 325 MG TAB PO SCH (09:36)
[2020-11-12] MEDS ORDERED: LIDOCAINE 5% 1 EACH PATCH TD SCH (10:00)
[2020-11-12] MEDS ORDERED: MAGNESIUM HYDROXIDE (MOM) ORAL LIQD UDC PO PRN (10:00)
[2020-11-12 19:51] VITALS: BP 119/71
== END 2020-11-12 22:00 | disposition home or self-care (01) | DRG 765 ==
LOC: TRG 18:03 → APU 18:04 → TRG 18:47 → LD 18:47 → OB 23:51
PROVIDERS: ADMIT Obstetrics & Gynecology; ATTEND Obstetrics & Gynecology
PROC: 10D00Z1 Extraction of Products of Conception, Low, Open Approach (ICD-10-PCS; principal; 2020-11-09)
PROC: 3E0234Z Introduction of Serum, Toxoid and Vaccine into Muscle, Percutaneous Approach (ICD-10-PCS; 2020-11-11)
DX: O32.2XX2 Maternal care for transverse and oblique lie, fetus 2 (principal); O30.043 Twin pregnancy, dichorionic/diamniotic, third trimester; O99.02 Anemia complicating childbirth; Z37.2 Twins, both liveborn; Z3A.34 34 weeks gestation of pregnancy; O99.62 Diseases of the digestive system complicating childbirth; K59.00 Constipation, unspecified; Z20.822 Contact with and (suspected) exposure to COVID-19; M54.5 Low back pain; O75.89 Other specified complications of labor and delivery; Z23 Encounter for immunization; D50.0 Iron deficiency anemia secondary to blood loss (chronic)
CPT/HCPCS: 36415; 76815; 85007; 85014; 85018; 85025; 86592; 86850; 86900; 86901; 88307; 96360; 96365; 96366; 96372; 99211; G0378; G0463; J0290; J0690; J0702; J1100; J1170; J1885; J2370; J2405; J2765; J3490; J7120; U0003